=== PATIENT | female | born 2000 | race African-American/Black ===

== ENCOUNTER 2023-07-16 06:53 | Day surgery (SDC) | payer BC ==
[2023-07-14 16:35] VITALS: BMI 40.6
[~2023-07-16 06:53] MED LIST: Bupivacaine HCl 0.5%/Epinephrine 1:200,000/PF 30 ml Vial ONE
[2023-07-16] MEDS ORDERED: Vancomycin (BATCH) 1.5 GM/300 ML BAG ONE (07:38)
[2023-07-16 07:45] LABS: #Eosinphils 0.1 thou/uL (0.0-0.7); #Monocytes 0.4 thou/uL (0.11-0.59); %Basophils 0.3 % (0.0-1.0); %Lymphocytes 24.3 % (21.0-51.0); %Neutrophils 69.3 % (42.0-75.0); Hematocrit 38.7 % (36.0-47.0); Hemoglobin 13.2 g/dL (12.0-16.0); Mean Corpuscular HGB CONC 34.1 g/dL (32.0-36.0); Mean Corpuscular Hemoglobin 29.7 pg (27.0-31.0); Mean Corpuscular Volume 87.2 fl (78.0-98.0); Mean Platelet Volume 10.4 fL (7.4-10.4); Platelet Count 226 10x3/uL (130-400); RBC Distribution Width 11.9 % (11.5-14.5); Red Blood Cell (RBC) Count 4.44 mill/uL (4.20-5.40); White Blood Cell (WBC) Count 8.6 10x3/uL (4.8-10.8)
[2023-07-16 07:53] LABS: BHCG - Serum Negative (NEGATIVE); Pregs Control Background? CLEAR/WHITE (CLR/WHITE); Pregs Control Bar Appear? YES (CONTROL BAR)
[2023-07-16 08:06] LABS: Anion Gap 11 mmol/L (10-20); BUN (Urea Nitrogen) 18 mg/dL (7.0-18.7); Calc. Creatinine Clearance 209 mL/min (70-130); Calcium 9.5 mg/dL (7.8-10.44); Carbon Dioxide 24 mmol/L (22-29); Chloride 104 mmol/L (98-107); Estimated GFR 122; Glucose 161 mg/dL (70-105); Potassium 4.3 mmol/L (3.5-5.1); Sodium 135 mmol/L (136-145)
[2023-07-16] MEDS ORDERED: Bupivacaine PF 0.5% 30 ML VIAL ONE ×2 (08:25→08:40)
[2023-07-16] MEDS ORDERED: fentaNYL 50 mcg/mL 1 mL Vial ONE ×5 (08:25→13:15)
[2023-07-16] MEDS ORDERED: Midazolam HCl 2 mg/2 ml Vial ONE (08:25)
[2023-07-16] MEDS ORDERED: Lidocaine 2% PF 5 ML VIAL ONE (08:40)
[2023-07-16] MEDS ORDERED: PROPOFOL 20 ML ONE ×2 (08:40→09:38)
[2023-07-16] MEDS ORDERED: fentaNYL 50 mcg/mL 1 mL Vial SLOW IVP PRN (09:23)
[2023-07-16] MEDS ORDERED: HYDROcodone/Acetaminophen 10/325 mg Tablet PO PRN ×2 (09:30)
[2023-07-16] MEDS ORDERED: Ropivacaine 0.2% 550 ML 550 ML NERVE BLCK SCH (09:30)
[2023-07-16] MEDS ORDERED: Ondansetron PF 4 MG/2 ML Vial IVP PRN (09:30)
[2023-07-16] MEDS ORDERED: Zolpidem Tartrate 5 MG TAB PO PRN (09:30)
[2023-07-16] MEDS ORDERED: Promethazine HCl 25 MG/ML VIAL IM PRN (09:30)
[2023-07-16] MEDS ORDERED: traMADol HCl 50 MG TAB PO PRN ×2 (09:30)
[2023-07-16] MEDS ORDERED: Sodium Chloride 0.9% 100 ML ONE (09:40)
[2023-07-16] MEDS ORDERED: CEFAZOLIN 2 GM VIAL ONE (09:40)
[2023-07-16] MEDS ORDERED: Lidocaine 1% PF 5 ML VIAL ONE (09:42)
[2023-07-16] MEDS ORDERED: Rocuronium Bromide 10 MG/ML (10ML VIAL) ONE (09:42)
[2023-07-16] MEDS ORDERED: Ondansetron PF 4 MG/2 ML Vial ONE (10:24)
[2023-07-16] MEDS ORDERED: Ketorolac Tromethamine 30 MG (1 mL) VIAL ONE (10:24)
[2023-07-16] MEDS ORDERED: Metoprolol Tartrate 5 MG (5 mL) VIAL ONE (10:24)
[2023-07-16] MEDS ORDERED: PHENYLEPHRINE-NS 100 MCG/ML 10 ML SYRINGE ONE (10:27)
[2023-07-16] MEDS ORDERED: SUGAMMADEX SODIUM 200 MG/2 ML VIAL ONE (11:55)
[2023-07-16] MEDS ORDERED: Ketorolac Tromethamine 30 MG (1 mL) VIAL IVP SCH (12:00)
[2023-07-16] MEDS ORDERED: HYDROcodone/Acetaminophen 5/325 mg Tablet ONE (14:11)
== END 2023-07-16 15:48 | disposition home or self-care (01) ==
LOC: SDC 06:53
PROVIDERS: ATTEND Orthopaedic Surgery
PROC: 0SUD0KZ Supplement Left Knee Joint with Nonautologous Tissue Substitute, Open Approach (ICD-10-PCS; principal; 2023-07-16)
DX: M93.262 Osteochondritis dissecans, left knee (principal)
CPT/HCPCS: 80048; 84703; 85025; 93005; 93010; A4306; J1885; J2001; J2250; J2405; J2704; J2795; J3010; J3370; J3490; S0020